=== PATIENT | male | born 1965 ===

== ENCOUNTER 2017-10-19 22:56 | Emergency (ER) | payer OTHER ==
[2017-10-19 23:22] VITALS: BP 127/81; PULSE 77; TEMP 98.9; O2SAT 97
--- NOTE | 2017-10-20 00:08 | C.PDOC ---
History Of Present Illness Patient is a 52 y/o male who presents to the ED with a complaint of an itchy rash to the left extremity since yesterday. Patient reports rash spread to right leg and upper back since discovery, prompting visit. No other physical complaints at this time. Time Seen by Provider: 10/19/17 23:29 Chief Complaint (Nursing): Abnormal Skin Integrity History Per: Patient History/Exam Limitations: no limitations Onset/Duration Of Symptoms: Days (yesterday) Current Symptoms Are (Timing): Still Present Location Of Injury: Right: Back, Leg, Left: Back, Leg Quality Of Symptoms: Itching Recent travel outside of the [place]: No Additional History Per: Patient Past Medical History Reviewed: Historical Data, Nursing Documentation, Vital Signs Vital Signs: Last Vital Signs Temp 98.9 F 10/19/17 23:15 Pulse 77 10/19/17 23:15 Resp 20 10/20/17 00:57 BP 127/81 10/19/17 23:15 Pulse Ox 97 10/20/17 03:06 - Medical History PMH: HTN, Hypercholesterolemia Surgical History: No Surg Hx Family History: States: No Known Family Hx - Social History Hx Alcohol Use: Yes Hx Substance Use: No - Immunization History Hx Influenza Vaccination: No Hx Pneumococcal Vaccination: No Review Of Systems Skin: Positive for: Rash (left and right lower extremities) Physical Exam - Physical Exam Appears: Well, Non-toxic, No Acute Distress Skin: Rash (multiple erythematous papules scattered on right foot; few papules on left foot and left lower back, no vesicles or pustules) Eye(s): bilateral: Normal Inspection Oral Mucosa: Moist Extremity: Pedal Edema (left foot, no warmth or proximal streaking) Neurological/Psych: Oriented x3, Normal Speech, Normal Cognition ED Course And Treatment O2 Sat by Pulse Oximetry: 97 Progress Note: Prednisone and Benadryl administered. On re-eval, patient advised to follow up with PMD if symptoms persist. Patient to be discharged. Disposition - Disposition Referrals: [facility] at [facility] [Outside] Disposition: HOME/ ROUTINE Disposition Time: 00:05 Condition: STABLE Additional Instructions: Leg elevation Take medications as directed Return to ER if increasing redness, warmth , moderate pain , unable to bear weight or worse Prescriptions: DiphenhydrAMINE [Benadryl] 25 mg PO QID #20 cap Hydrocortisone 1% Cream [Cortizone 1% Cream] 1 appl TP BID #1 tube Instructions: Insect Bite or Sting (ED) Forms: [facility] (Maldivian), Work Excuse - Clinical Impression Clinical Impression: Insect bites - Scribe Statement The provider has reviewed the documentation as recorded by the Scribe Mishel Naylor All medical record entries made by the Scribe were at my direction and personally dictated by me. I have reviewed the chart and agree that the record accurately reflects my personal performance of the history, physical exam, medical decision making, and the department course for this patient. I have also personally directed, reviewed, and agree with the discharge instructions and disposition.
[2017-10-20 01:00] VITALS: RESP 20
== END 2017-10-20 00:57 | disposition home or self-care (01) ==
LOC: C.ER 22:56
DX: S80.862A Insect bite (nonvenomous), left lower leg, initial encounter (principal); S20.461A Insect bite (nonvenomous) of right back wall of thorax, initial encounter; W57.XXXA Bitten or stung by nonvenomous insect and other nonvenomous arthropods, initial encounter; I10 Essential (primary) hypertension; E78.00 Pure hypercholesterolemia, unspecified

== ENCOUNTER 2018-03-24 11:57 | Emergency (ER) | payer OTHER ==
[2018-03-24 12:06] VITALS: O2SAT 97
[2018-03-24] MEDS ORDERED: Sodium Chloride 0.9% 1,000 ML IV ONE (12:43)
--- NOTE | 2018-03-24 12:50 | C.PDOC ---
History Of Present Illness 53 year old male, whose PMHx includes HTN and Hypercholesterolemia, presents to the ED for evaluation of dizziness which has been intermittent for around 3 days. Patient describes the dizziness as a "spinning sensation." Patient states he is visiting from [place], and notes he has recently been under a lot of stress. He denies fever, chills, headache, nausea, vomiting. Time Seen by Provider: 03/24/18 12:23 Chief Complaint (Nursing): Dizziness/Lightheaded History Per: Patient History/Exam Limitations: no limitations Onset/Duration Of Symptoms: Days (3), Intermittent Episodes Current Symptoms Are (Timing): Still Present Seizure Or Post-ictal Symptoms: None Fall Associated With With Symptoms: No Additional History Per: Patient Past Medical History Reviewed: Historical Data, Nursing Documentation, Vital Signs Vital Signs: Last Vital Signs Temp 98.8 F 03/24/18 14:06 Pulse 62 03/24/18 14:06 Resp 18 03/24/18 14:06 BP 147/87 03/24/18 14:06 Pulse Ox 97 03/24/18 14:12 - Medical History PMH: HTN, Hypercholesterolemia Surgical History: No Surg Hx Family History: States: Unknown Family Hx - Social History Hx Alcohol Use: Yes Hx Substance Use: No - Immunization History Hx Influenza Vaccination: No Hx Pneumococcal Vaccination: No Review Of Systems Constitutional: Negative for: Fever, Chills Cardiovascular: Negative for: Chest Pain Gastrointestinal: Negative for: Nausea, Vomiting Neurological: Positive for: Dizziness. Negative for: Headache Physical Exam - Physical Exam Appears: Non-toxic, No Acute Distress Skin: Normal Color, Warm, Dry Head: Atraumatic, Normacephalic Eye(s): bilateral: Normal Inspection, PERRL, EOMI Ear(s): Bilateral: Normal Oral Mucosa: Moist Neck: Normal, Supple Chest: Symmetrical, No Deformity, No Tenderness Cardiovascular: Rhythm Regular, No Murmur Respiratory: Normal Breath Sounds, No Rales, No Rhonchi, No Wheezing Gastrointestinal/Abdominal: Normal Exam Extremity: Normal ROM, Capillary Refill (less than 2 seconds ) Neurological/Psych: Oriented x3, Normal Speech, Normal Cognition, Other (no focal deficits ) Gait: Steady ED Course And Treatment - Laboratory Results Result Diagrams: 03/24/18 13:08 03/24/18 13:08 Lab Interpretation: Normal ECG: Interpreted By Me ECG Rhythm: Sinus Bradycardia ECG Interpretation: No Acute Changes Rate From EC O2 Sat by Pulse Oximetry: 97 Pulse Ox Interpretation: Normal Progress Note: Bloodwork, urinalysis, and EKG ordered and reviewed. Meclizine PO and IV Fluids administered. On re-evaluation ambulating with steady gait Reassessment Condition: Improved Disposition Counseled Patient/Family Regarding: Studies Performed, Diagnosis, Need For Followup, Rx Given - Disposition Referrals: [facility] 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 - Scribe Statement The provider has reviewed the documentation as recorded by the Scribe (Michell Dubois) All medical record entries made by the Scribe were at my direction and personally dictated by me. I have reviewed the chart and agree that the record accurately reflects my personal performance of the history, physical exam, medical decision making, and the department course for this patient. I have also personally directed, reviewed, and agree with the discharge instructions and disposition.
[2018-03-24] MEDS ORDERED: Sodium Chloride 0.9% 1,000 ML ONE (12:55)
[2018-03-24 13:11] LABS: BASO # 0.1 K/uL (0.0-0.2); BASO % 1.1 % (0.0-2.0); EOS # 0.3 K/uL (0.0-0.7); HEMOGLOBIN 15.7 g/dL (12.0-18.0); LYMPH # 3.5 K/uL (1.0-4.3); LYMPH % 36.3 % (20.0-40.0); MEAN CELL VOLUME 85.3 fL (80.0-94.0); MEAN CORPUSCULAR HEMOGLOBIN 28.8 pg (27.0-31.0); MEAN CORPUSCULAR HGB CONC 33.8 g/dL (33.0-37.0); MONO # 0.9 K/uL (0.0-0.8); MONO % 9.7 % (0.0-10.0); NEUT # 4.8 K/uL (1.8-7.0); NEUT % 49.9 % (50.0-75.0); NRBC % 0.1 % (0.0-2.0); RBC 5.46 Mil/uL (4.40-5.90); RED CELL DISTRIBUTION WIDTH 14.3 % (11.5-14.5); WHITE BLOOD COUNT 9.6 K/uL (4.8-10.8)
[2018-03-24 13:16] LABS: SQUAMOUS EPITHIAL < 1 /hpf (0-5); URINE BILIRUBIN NEGATIVE (NEGATIVE); URINE BLOOD 1+ (NEGATIVE); URINE CLARITY Hazy (Clear); URINE COLOR Yellow (YELLOW); URINE GLUCOSE (UA) NORMAL (Normal); URINE LEUKOCYTE ESTERASE NEG Leu/uL (Negative); URINE PROTEIN NEGATIVE (NEGATIVE); URINE UROBILINOGEN NORMAL mg/dL (0.2-1.0)
[2018-03-24 13:31] LABS: ALB/GLOB RATIO 1.4 (1.0-2.1); ALBUMIN 4.3 g/dL (3.5-5.0); ALT/SGPT 38 U/L (21-72); AST/SGOT 38 U/L (17-59); BLOOD UREA NITROGEN 16 mg/dL (9-20); GFR AFRICAN-AMERICAN > 60; GFR NON-AFRICAN AMERICAN > 60
[2018-03-24 14:07] VITALS: BP 147/87; PULSE 62; RESP 18; TEMP 98.8
--- NOTE | 2018-03-25 14:03 | CARD ---
APPROVED REPORT EKG Measurement Heart [id number] <Conclusion> Sinus bradycardia with sinus arrhythmia Left anterior fascicular block Abnormal ECG
== END 2018-03-24 14:38 | disposition home or self-care (01) ==
LOC: C.ER 11:57
DX: R42 Dizziness and giddiness (principal); E78.00 Pure hypercholesterolemia, unspecified; I10 Essential (primary) hypertension
CPT/HCPCS: 80053; 81001; 82948; 85025; 93005; 96360; 99285; J7040

== ENCOUNTER 2018-10-16 08:40 | Emergency (ER) | payer OTHER ==
[2018-10-16 08:41] VITALS: BMI 27.8
[2018-10-16 08:55] VITALS: BP 157/97; RESP 18; TEMP 98.6
--- NOTE | 2018-10-16 09:20 | C.PDOC ---
History Of Present Illness 53 y/o male pt with hx of HLD and HTN presents to the ER c/o left lower back pain. Pt [place] the mall and sat on a massage chair when his left lower back started to hurt. Pt is unable to reach his feet. Pt denies numbness/weakness, urinary incontinence and saddle anesthesia. Time Seen by Provider: 10/16/18 09:06 Chief Complaint (Nursing): Back Pain History Per: Patient History/Exam Limitations: no limitations Onset/Duration Of Symptoms: Days Current Symptoms Are (Timing): Still Present Past Medical History Reviewed: Historical Data, Nursing Documentation, Vital Signs Vital Signs: Last Vital Signs Temp 98.6 F 10/16/18 08:54 Pulse 76 10/16/18 08:54 Resp 18 10/16/18 08:54 BP 157/97 H 10/16/18 08:54 Pulse Ox 97 10/16/18 08:54 - Medical History PMH: HTN, Hypercholesterolemia Surgical History: Appendectomy Family History: States: Unknown Family Hx - Social History Hx Alcohol Use: Yes Hx Substance Use: No - Immunization History Hx Influenza Vaccination: No Hx Pneumococcal Vaccination: No Review Of Systems Except As Marked, All Systems Reviewed And Found Negative. Genitourinary: Negative for: Incontinence Musculoskeletal: Positive for: Back Pain (left lower ). Negative for: Other (saddle anesthesia) Neurological: Negative for: Weakness, Numbness Physical Exam - Physical Exam Appears: Non-toxic, No Acute Distress Skin: Warm, Dry Head: Normacephalic Eye(s): bilateral: Normal Inspection, EOMI Back: CVA Tenderness (Left lower back), Straight Leg Raising ((-) negative), No Other (midline cervicle tenderness) Extremity: Normal ROM (x4) Neurological/Psych: Oriented x3, Normal Speech, Normal Cognition, Normal Motor, Normal Sensation ED Course And Treatment O2 Sat by Pulse Oximetry: 97 (RA) Pulse Ox Interpretation: Normal Medical Decision Making Medical Decision Making: Impression: Left lower back pain Plans: -- Valium -- Toradol Disposition - Disposition Referrals: [facility] [Outside] [facility] at [facility] [Outside] [facility] [place] [Outside] Disposition: HOME/ ROUTINE Disposition Time: 10:40 Condition: GOOD Prescriptions: Cyclobenzaprine [Cyclobenzaprine HCl] 10 mg PO Q8 #15 tab Ibuprofen [Motrin] 600 mg PO Q6 #20 tab Instructions: Low Back Pain in Adults Forms: [facility] (Venezuelan) - Clinical Impression Clinical Impression: Low back pain - Scribe Statement The provider has reviewed the documentation as recorded by the Scribe Eri Mcmullen Provider Attestation: All medical record entries made by the Scribe were at my direction and personally dictated by me. I have reviewed the chart and agree that the record accurately reflects my personal performance of the history, physical exam, medical decision making, and the department course for this patient. I have also personally directed, reviewed, and agree with the discharge instructions and disposition.
[2018-10-16 10:42] VITALS: PULSE 84
[2018-10-22 10:46] VITALS: O2SAT 97
== END 2018-10-16 10:40 | disposition home or self-care (01) ==
LOC: C.ER 08:40
DX: M54.5 Low back pain (principal)
CPT/HCPCS: 96372; 99284; J1885